=== PATIENT | male | born 1980 | race Caucasian/White ===

== ENCOUNTER 2017-05-05 13:07 | Emergency (ER) | payer SELFPAY ==
[2017-05-05 13:11] VITALS: RESP 18
[2017-05-05] MEDS ORDERED: ASPIRIN 81 MG CHEWABLE TAB PO ONE (13:24)
[2017-05-05 13:34] LABS: PLATELET COUNT 204 10^3/uL (150-400)
--- NOTE | 2017-05-05 13:34 | CPEKG ---
Heart Rate: 71 RR Interval: 845 P-R Interval: 156 QRSD Interval: 94 QT Interval: 388 QTC Interval: 422 P Brunson: 33 QRS Brunson: 46 T Wave Brunson: 39 EKG Severity - NORMAL ECG - EKG Impression: ? hyperacute t waves EKG Impression: SINUS RHYTHM Electronically Signed By: Kori Cutler 05-May-2017 20:34:22
[2017-05-05] MEDS ORDERED: KETOROLAC 30 MG/1 ML SDV IVP ONE (15:02)
--- NOTE | 2017-05-05 15:07 | EDPHY ---
HPI/HX/ROS/PE/MDM Narrative: CHIEF COMPLAINT: Chest tightness, nausea, vomiting, diarrhea HISTORY OF PRESENT ILLNESS: The patient is a 36 y/o male complaining of nausea , vomiting, diarrhea, and chest pressure. Earlier this week he began experiencing nausea accompanied by 2 episodes of vomiting and several episodes of diarrhea. Vomiting and diarrhea have resolved. Today he was sitting in the car when he began experiencing chest pressure radiating into his left arm and rated 6 or 7 out of 10. The chest pain does not extend in to his back, jaw, or abdomen. The pressure improves with stretching. He has associated shortness of breath. He denies abdominal pain, bloody emesis, bloody stool, dark or tarry stools, fever, or other associated symptoms. He denies history of hypercholesterolemia, family history of heart attack under 50, recent illicit drug use, recent cough or cold, or history of blood clots. He quit smoking 1 month ago after smoking off and on for 19 years. He reports the aspirin he was given may have improved his symptoms. Patient does report a history of indigestion. Unclear if today's symptoms are similar to prior indigestion. No clear exacerbating or relieving factors, however no exacerbation with exertion. Not pleuritic. No fever, chills, palpitations, urinary complaints, headache, lightheadedness. REVIEW OF SYSTEMS: Aside from elements discussed in the HPI, a comprehensive 10-point review of systems was reviewed and is negative. PAST MEDICAL HISTORY: Quit smoking 1 month ago, possible hypertension, not any treatment. SOCIAL HISTORY: at bedside, employed, lives in [place] VITAL SIGNS: Reviewed by me GENERAL: Well-developed, well-nourished, resting comfortably in no respiratory distress. Patient is holding his left chest and states that feels like there is pressure along the left side. HEENT: Atraumatic. Eyes: No icterus, no injection. Mouth: moist mucous membranes. No erythema or lesions. Neck: supple with no adenopathy. LUNGS: Clear to auscultation bilaterally, no wheezes, rhonchi or rales. CHEST: Nontender to palpation. No rash. No crepitus. CARDIAC: Regular rate and rhythm, no rubs, murmurs or gallops. ABDOMEN: Soft, no epigastric or right upper quadrant tenderness, nondistended, bowel sounds normal. BACK: No CVA tenderness. EXTREMITIES: No trauma. No edema. Range of motion is normal throughout. NEURO: Alert and oriented, grossly nonfocal. SKIN: Warm and dry, no rash. PSYCHIATRIC: Normal mentation, no agitation. ED Course: X-ray: Chest x-ray was obtained. I viewed the images myself on the PACS system. My interpretation of the images is: normal chest. The radiologist interpretation is normal chest with no source for symptoms. I discussed the x- ray findings with the patient. The patient presents with chest pressure extending into the left shoulder and shortness of breath after a five day history of nausea, vomiting, and diarrhea. He denies pressure extending into his back, jaw, or abdomen.He denies family history of early heart attack. He has a possible history of hypertension. The pressure is better with stretching and after taking aspirin. 1504: The patient has a HEART score of 2. 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 We discussed alternative diagnosis and the patient now reports that he does think he has been bothered with indigestion frequently over the last several months. He wonders whether his symptoms may in fact be indigestion. He was given a GI cocktail. GI cocktail was provided. Symptoms improved. Per the heart score protocol, patient stated for repeat troponin and EKG. Troponin and EKG scheduled for 4:30. Repeat Troponin and EKG are normal. I have instructed him to begin taking omeprazole daily and follow up with his primary care provider. Also advised regarding the need for follow-up and potential need for risk stratification. Return precautions given. The patient agrees to this course of action. MDM: After history and physical examination, the differential for chest pain was considered, including but not limited to, myocardial ischemia, acute coronary syndrome, gastrointestinal source, reflux, GERD, pulmonary embolus, chest wall pain, pleural inflammation and pulmonary infectious causes. - Data Points Imaging Results: CXR: Impression: No significant radiographic abnormality. Specifically, a source for chest pain is not identified. Dictated By: Duncan Marroquin MD Laboratory Results: Laboratory Results 05/05/17 13:20 05/05/17 13:20 Medications Given: Discontinued Medications Al Hydroxide/Mg Hydroxide (Maalox Susp) 30 ml PO EDNOW ONE Stop: 05/05/17 15:54 Last Admin: 05/05/17 15:56 Dose: 30 ml Aspirin (Aspirin) 324 mg PO EDNOW ONE Stop: 05/05/17 13:25 Last Admin: 05/05/17 13:27 Dose: 324 mg Hyoscyamine Sulfate (Levsin, Hyomax-Sl) 0.25 mg PO ONCE ONE Stop: 05/05/17 16:01 Last Admin: 05/05/17 16:06 Dose: 0.25 mg Lidocaine (Lidocaine 2% Viscous) 15 ml PO ONCE ONE Stop: 05/05/17 16:01 Last Admin: 05/05/17 16:09 Dose: 15 ml General Time Seen by Provider: 05/05/17 14:19 Initial Vital Signs: Initial Vital Signs Temperature (C) 36.5 C 05/05/17 13:08 Heart Rate 86 05/05/17 13:08 Respiratory Rate 18 05/05/17 13:08 Blood Pressure 174/109 H 05/05/17 13:08 O2 Sat (%) 99 05/05/17 13:08 O2 Delivery Mode Room Air Allergies/Adverse Reactions: No Known Allergies Allergy (Unverified 05/05/17 13:08) Home Medications: Medication Instructions Recorded NK [No Known Home Meds] 05/05/17 Departure - Departure Disposition: Home, Routine, Self-Care Clinical Impression: Chest discomfort, Reflux esophagitis Condition: Good Instructions: Chest Pain (ED), Gastroesophageal Reflux Disease (ED) Additional Instructions: 1. Begin taking omeprazole or an H2 shane such as Zantac or tagament. These are available [id number]. 2. You can also take Maalox or Mylanta. 2. Follow-up with your primary care provider next week. 3. Return to the ED for weakness or numbness in one side of your body, bloody vomit or diarrhea, or other worsening of condition. Referrals: Solomon Sheikh [Doctor of Osteopathy] - As per Instructions Report Scribed for: Kori Cutler Report Scribed by: Gaby Villarreal Date of Report: 05/05/17 Time of Report: 14:21 Physician Review and Approval Statement: Portions of this note were transcribed by a medical tech. I personally performed a history, physical exam, medical decision making, and confirmed accuracy of information the transcribed note.
[2017-05-05] MEDS ORDERED: MAG HYDROX/AL HYDROX/SIMETH 30 ML UDCUP PO ONE (15:53)
[2017-05-05] MEDS ORDERED: HYOSCYAMINE SULFATE 0.125 MG TAB PO ONE (16:00)
[2017-05-05] MEDS ORDERED: LIDOCAINE 2% VISCOUS 15 ML UDCUP PO ONE (16:00)
--- NOTE | 2017-05-05 17:02 | CPEKG ---
Heart Rate: 60 RR Interval: 1000 P-R Interval: 136 QRSD Interval: 100 QT Interval: 408 QTC Interval: 408 P Mckinney: 4 QRS Mckinney: 25 T Wave Mckinney: 23 EKG Severity - NORMAL ECG - EKG Impression: SINUS RHYTHM Electronically Signed By: Kori Cutler 05-May-2017 20:33:59
[2017-05-05 18:25] VITALS: BP 156/93; PULSE 76; TEMP 98.1; O2SAT 97
== END 2017-05-05 18:24 | disposition home or self-care (01) ==
DX: K21.0 Gastro-esophageal reflux disease with esophagitis (principal); Z87.891 Personal history of nicotine dependence
CPT/HCPCS: J1885

== ENCOUNTER 2017-10-10 10:01 | Emergency (ER) | payer OTHER ==
[2017-10-10 10:08] VITALS: BP 142/103
--- NOTE | 2017-10-10 10:50 | EDPHY ---
H & P Stated Complaint: weed wacking yesterday/rock flew in nose and was swallowed Time Seen by Provider: 10/10/17 10:24 HPI/ROS: CHIEF COMPLAINT: Foreign body sensation in esophagus HISTORY OF PRESENT ILLNESS: 37-year-old male presents with a foreign body sensation in the esophagus. He was weed whacking yesterday when a rock flew into his nose. He swallowed the foreign body and since then he has had a mild foreign body sensation in the lower chest. He is able to eat and drink normally. No shortness of breath or cough. REVIEW OF SYSTEMS: complete 10 point ROS negative except at noted in the HPI - Personal History Current Tetanus/Diphtheria Vaccine: Yes - Medical/Surgical History Hx Asthma: No Hx Chronic Respiratory Disease: No Hx Diabetes: No Hx Cardiac Disease: No Hx Renal Disease: No Hx Cirrhosis: No Hx Alcoholism: No Hx HIV/AIDS: No Hx Splenectomy or Spleen Trauma: No Other PMH: mild htn (untreated) - Social History Smoking Status: Former smoker Alcohol Use: Sober Drug Use: None - Physical Exam Exam: General Appearance: Alert, pleasant Eyes: Pupils equal and round, no conjunctival pallor ENT, Mouth: Normal inspection, Mucous membranes moist Neck: Normal inspection Respiratory: Lungs are clear to auscultation Cardiovascular: Regular rate and rhythm Gastrointestinal: Abdomen is soft and nontender Neurological: A&O, nonfocal, normal gait Skin: Warm and dry Extremities: Normal inspection Psychiatric: Mood and affect normal Constitutional: Initial Vital Signs Temperature (C) 36.9 C 10/10/17 10:06 Heart Rate 53 L 10/10/17 10:06 Respiratory Rate 18 10/10/17 10:06 Blood Pressure 142/103 H 10/10/17 10:06 O2 Sat (%) 97 10/10/17 10:06 O2 Delivery Mode Room Air Allergies/Adverse Reactions: No Known Allergies Allergy (Verified 10/10/17 10:05) Home Medications: Medication Instructions Recorded Metoprolol Succinate 10/10/17 Sucralfate [Carafate Oral Liquid 1 gm PO Q6 5 Days ml 10/10/17 100 mg/ml] Medical Decision Making - Diagnostics Imaging Results: CXR: NAD Imaging: I viewed and interpreted images myself ED Course/Re-evaluation: This patient presents with a foreign body sensation all in the distal esophagus. Chest x-ray is unremarkable. He is able to eat and drink normally. Most likely this is an esophageal abrasion. Prescription for sucralfate given. Follow up with GI in 2-3 days if sensation persists. Departure - Departure Disposition: Home, Routine, Self-Care Clinical Impression: Sensation of foreign body in esophagus Condition: Good Instructions: Esophageal Foreign Body (ED) Referrals: Boris Whitfield DO [Primary Care Provider] - As per Instructions Brianna Garza MD [Medical Doctor] - 2-3 days, if not improved Prescriptions: Sucralfate [Carafate Oral Liquid 100 mg/ml] 1 gm PO Q6 5 Days ml
== END 2017-10-10 11:15 | disposition home or self-care (01) ==
DX: R09.89 Other specified symptoms and signs involving the circulatory and respiratory systems (principal); Z87.891 Personal history of nicotine dependence

== ENCOUNTER → 2017-12-25 | Outpatient (CLI) | payer OTHER | DX: R10.11 Right upper quadrant pain (principal) ==